=== PATIENT | female | born 1945 | race Caucasian/White ===

== ENCOUNTER → 2018-05-14 13:54 | Outpatient (CLI) | payer OTHER, SELFPAY ==
--- NOTE | 2018-05-14 | DI.MG.S_ITS ---
BILATERAL DIGITAL SCREENING MAMMOGRAM 3D/2D WITH CAD: 05/14/2018 CLINICAL: Routine screening. Comparison is made to exams dated: 04/29/2017 mammogram, 04/25/2015 mammogram, and 04/24/2014 mammogram - [facility]. There are scattered fibroglandular elements in both breasts. Current study was also evaluated with a Computer Aided Detection (CAD) system. No significant masses, calcifications, or other findings are seen in either breast. There has been no significant interval change. IMPRESSION: NEGATIVE There is no mammographic evidence of malignancy. A 1 year screening mammogram is recommended. This exam was interpreted at Station ID: [id number]. NOTE: For mammograms, a report in lay terms will be sent to the patient. Approximately 15% of breast malignancies will not be visualized mammographically. In the management of a palpable breast mass, a negative mammogram must not discourage biopsy of a clinically suspicious lesion. Electronically Signed By: Leona buchanan/jeannie:05/14/2018 15:42:19 letter sent: Normal Exam ACR BI-RADS Category 1: Negative 3341F
== END ==
PROVIDERS: PCP Family Medicine; Visit Provider Family Medicine
DX: Z12.31 Encounter for screening mammogram for malignant neoplasm of breast (principal)
CPT/HCPCS: 77063; 77067

== ENCOUNTER → 2018-06-09 18:52 | Outpatient (REF) | payer OTHER, SELFPAY | LOC: LAB 18:52 | PROVIDERS: PCP Family Medicine; Visit Provider Physician Assistant | DX: L57.0 Actinic keratosis (principal) | CPT/HCPCS: 87070; 87075; 87205 ==

== ENCOUNTER → 2019-03-09 10:45 | Outpatient (CLI) | payer OTHER, SELFPAY ==
[2019-03-09 12:11] LABS: Add Manual Diff / Slide Review NO; Basophils Absolute Auto 0 /uL (0-100); Basophils Percent Auto 0.8 % (0-2); Eosinophils Absolute Auto 0 /uL (0-450); Eosinophils Percent Auto 1.1 % (2-4); Hematocrit 39.6 % (36-46); Hemoglobin 13.2 g/dL (12.0-16.0); Lymphocytes Absolute Auto 1400 /uL (1100-4500); Lymphocytes Percent Auto 35.6 % (25-40); Mean Corpuscular HGB Conc 33.4 % (30-36); Mean Corpuscular Hemoglobin 32.1 PG (26-34); Monocytes Absolute Auto 300 /uL (0-900); Monocytes Percent Auto 6.8 % (3-14); Neutrophils Absolute Auto 2200 /uL (1500-7000); Neutrophils Percent Auto 55.7 % (50-75); Platelet Count 193 X10^3/uL (150-400); Red Blood Cell Count 4.12 X10^6/uL (4.0-5.2); Red Cell Distribution Width 13.7 % (11.6-14.8); White Blood Cell Count 3.9 X10^3/uL (4.5-11.0)
[2019-03-09 12:18] LABS: Alanine Aminotransferase 32 IU/L (9-52); Albumin 4.2 g/dL (3.5-5.0); Albumin Globulin Ratio 1.3 (1.0-2.8); Alkaline Phosphatase 81 U/L (38-126); Aspartate Aminotransferase 41 IU/L (14-36); BUN Creatinine Ratio 23.3 (6-22); Bilirubin Total 0.7 mg/dL (0.2-1.3); Blood Urea Nitrogen 21 mg/dL (7-17); Calcium 9.3 mg/dL (8.4-10.2); Carbon Dioxide 29 mmol/L (22-32); Chloride 102 mmol/L (98-107); Estimated Glomerular Filt Rate > 60.0 mL/min (>60); Globulin 3.2 g/dL (1.7-4.1); Glucose 84 mg/dL (80-110); HEMOLYSIS < 15 (0-50); Potassium 4.6 mmol/L (3.4-5.1); Sodium 139 mmol/L (137-145); Total Protein 7.4 g/dL (6.3-8.2)
[2019-03-09 12:46] LABS: Thyroid Stimulating Hormone 2.46 uIU/mL (0.47-4.68)
== END ==
PROVIDERS: PCP Family Medicine; Visit Provider Hospitalist
DX: E03.9 Hypothyroidism, unspecified (principal); E78.2 Mixed hyperlipidemia; Z13.29 Encounter for screening for other suspected endocrine disorder
CPT/HCPCS: 36415; 80053; 84443; 85025

== ENCOUNTER → 2019-03-17 13:47 | Outpatient (CLI) | payer OTHER, SELFPAY ==
--- NOTE | 2019-03-17 13:48 | DI.ECHO.S_ITS ---
[facility] +---------+ : : [address] [place] : : : : [id number] : : : : Phone: [phone]---------+ Echocardiogram Report + + :Name: WENCESLAO MENDOZA Study Date: 03/17/2019 Height: 68 in : :[facility] Exam Location: [place] Weight: 150 lb : : Gender: Female BSA: 1.8 m2 : :: 1945 Age: 74 yrs BP: 110/55 mmHg: :Reason For Study: AFIB : : Performed By: Domo Licona : :Referring: HOWARD MCGEE : + + Interpretation Summary 1) Normal left ventricular thickness, size, wall motion, and systolic function (EF 60-65%). 2) The right ventricle is mildly dilated with normal function. 3) The right atrium is moderately dilated. Left atrium is normal sized. 4) There is moderate tricuspid regurgitation. 5) The right ventricular systolic pressure is estimated to be at least 33 mmHg based on an estimated right atrial pressure of 3 mm Hg. 6) No prior Echo available for comparison. Procedure: A two-dimensional transthoracic echocardiogram with color flow and Doppler was performed. The study quality was technically good. There is no prior echocardiogram noted for this patient. The patient was in normal sinus rhythm during the exam. Left Ventricle: The left ventricle is normal in size. There is normal left ventricular wall thickness. The ejection fraction is estimated to be 60-65%. There are no focal wall motion abnormalities. Right Ventricle: The right ventricle is mildly dilated. The right ventricular systolic function is normal. Atria: The left atrial size is normal. The right atrium is moderately dilated. The interatrial septum is intact with no evidence for an atrial septal defect. Mitral Valve: The mitral valve is normal in structure and function. There is trace mitral regurgitation. Aortic Valve: The aortic valve is trileaflet. The aortic valve opens well. There is no aortic valve stenosis. There is trace aortic regurgitation. Tricuspid Valve: The tricuspid leaflets do not coapt. There is moderate tricuspid regurgitation. The right ventricular systolic pressure is estimated to be at least 33 mmHg based on an estimated right atrial pressure of 3 mm Hg. Pulmonic Valve: The pulmonic valve is normal in structure and function. There is no pulmonic valvular regurgitation. Great Vessels: The aortic root is normal size. The dimensions of the ascending aorta are normal. The pulmonary artery is normal size. The IVC is of normal diameter and collapses greater than 50% with a sniff. This suggests a low right atrial pressure of 3 mm Hg. Pericardium/ Pleura There is no pericardial effusion. There is no pleural effusion. MMode/2D Measurements & Calculations LVIDd: 4.4 cm LVOT diam: 2.1 cm LVIDs: 3.0 cm Ao root diam: 3.1 cm FS: 32.4 % asc Aorta Diam: 3.2 cm EPSS: 0.43 cm Ao Arch Diam (Prox Trans): 2.5 cm IVSd: 0.74 cm LVPWd: 0.58 cm LV wilkinson. diameter/BSA (cm/m^2): 2.4 LV sys. diameter/BSA (cm/m^2): 1.7 LA dimension: 3.2 cm RA long axis: 4.9 cm LA A2 area: 20.0 cm2 RA area: 22.3 cm2 LA A4 area: 15.4 cm2 RA vol: 85.5 ml LA length (vol): 4.7 cm RA : 47.3 ml/m2 LA vol: 55.1 ml IVC diam: 1.6 cm LA vol index: 30.5 ml/m2 RVD1 (basal): 4.6 cm RVD2 (mid): 3.5 cm Doppler Measurements & Calculations Ao V2 max: 99.6 cm/sec LVOT Max Antolin: 85.1 cm/sec Ao V2 mean: 79.3 cm/sec LV V1 max P.9 mmHg Ao max P.0 mmHg LV V1 VTI: 20.3 cm Ao mean P.6 mmHg JONAS(I,D): 2.6 cm2 Ao V2 VTI: 25.5 cm JONAS(V,D): 2.8 cm2 sev ratio: 0.80 JONAS indexed to BSA (cm^2/m^2): 1.5 MV E max antolin: 62.4 cm/sec TR max antolin: 272.6 cm/sec MV A max antolin: 58.1 cm/sec TR max P.7 mmHg MV E/A: 1.1 PA V2 max: 75.2 cm/sec Med Peak E' Antolin: 7.7 cm/sec PA V2 mean: 56.2 cm/sec E/E' med: 8.1 PA mean P.3 mmHg Lat Peak E' Antolin: 7.6 cm/sec PA pr(Accel): 14.1 mmHg E/E' lat: 8.2 PA Accel Time: 0.13 sec E/e' average: 8.1 MV dec time: 0.24 sec SV(LVOT): 67.2 ml Reading Physician:02:52 PM
== END ==
PROVIDERS: PCP Family Medicine; Visit Provider Hospitalist
DX: I48.91 Unspecified atrial fibrillation (principal)
CPT/HCPCS: 93306

== ENCOUNTER 2019-04-12 07:47 | Day surgery (SDC) | payer OTHER, SELFPAY ==
[2019-04-12] MEDS: PROPARACAINE 0.5% OPHTH SOL 2 DROPS EYE-OP (08:53)
[2019-04-12] MEDS: CATARACT EYE COMPOUND (10 DROPS/SYRINGE) 3 DROPS EYE-OP ×3 (08:54→09:11)
[2019-04-12 08:55] VITALS: BP 120/67; PULSE 61; RESP 16; TEMP 36.7; O2SAT 98; BMI 22.8
--- NOTE | 2019-04-12 09:57 | PM.PREOP ---
Pre-operative Note Interval Note History & Physical reviewed/Exam performed by Physician: No Changes to H&P: No
--- NOTE | 2019-04-12 09:57 | PM.OP.1 ---
Operative Date/Time/Diagnoses Pre-op diagnosis: Nuclear cataract right eye Procedure & Clinicians Procedure: Cataract Surgery Same procedure as scheduled: Yes Surgeon: Austin Galvan Anesthesia Type: MAC +/- and Sedation Operative Notes Procedure in detail: Patient brought to the operating suite. Tetracaine drops placed in the right eye. Patient was prepped and draped in sterile manner. Wire lid speculum was placed in the eye. Betadine drops were placed on the eye. This was irrigated. Lidocaine jelly was placed on the eye. A paracentesis port was created with a side-port blade. 0.1 mL 1% preservative free lidocaine was injected into the anterior chamber. The anterior chamber was deepened with viscoelastic. 2.6 mm keratome was used to create a temporal clear corneal incision. Cystotome and Utrata forceps were used to create continuous tear capsulorrhexis. Balanced salt solution was used to hydro dissect the nucleus. The miloop was used to crack the nucleous. The phacoemulsification handpiece was inserted and the nucleus was removed using the stop and chop technique. The irrigation aspiration handpiece was inserted and the remaining cortex was removed. Anterior chamber was deepened with viscoelastic. An Villagran ZCB00 intraocular lens with a power of 24.5 was injected into the capsular bag. Irrigation aspiration handpiece was inserted and the remaining viscoelastic was removed. Incision was hydrated with balanced salt solution and found to be leak free with pressure with Weck-Chen sponges. 0.1 mL Vigamox injected anterior chamber. 0.3 mL Kenalog 10 mg was injected subconjunctivally. Lid speculum was removed. The patient left the operating room in excellent condition. Complications: none Post-operative Condition: stable Disposition: same day surgery
[2019-04-12] MEDS: CHONDROIDTIN/SOD HYALURONATE 1.05 ML SYRINGE INTRAOCULA (10:22)
[2019-04-12] MEDS: MOXIFLOXACIN INJ 5 MG/ML VIAL EYE-OP (10:22)
[2019-04-12] MEDS: PHENYLEPHRINE/LIDOCAINE VIAL (OR) 0.2 ML EYE-OP (10:22)
[2019-04-12] MEDS: LIDOCAINE JELLY 2% 5 ML 1 APPLIC TOP (10:22)
[2019-04-12] MEDS: TRIAMCINOLONE 50 MG/5 ML VIAL INJ (10:23)
[2019-04-12] MEDS: TETRACAINE 0.5% OPHTH DROPS 4 ML 2 DROPS EYE-OP (10:23)
[2019-04-12] MEDS: BALANCED SALT IRRIG SOLN NO.2 500 ML, EPINEPHrine 1 MG IRR (10:23)
[2019-04-12 10:30] VITALS: BP 96/71; PULSE 68; RESP 16; O2SAT 96
--- NOTE | 2019-04-12 17:06 | SUR.PHASEII ---
Pt discharged by Mariella Tabor RN (documentation only by Gold Ruiz RN as she doesn't work in [employer] and know our documentation).
== END 2019-04-12 10:45 | disposition home or self-care (01) ==
LOC: OR 07:49
PROVIDERS: PCP Family Medicine; Visit Provider Ophthalmology
PROC: (CPT 66984; principal; 2019-04-12 09:45)
DX: H25.11 Age-related nuclear cataract, right eye (principal); E03.9 Hypothyroidism, unspecified
CPT/HCPCS: 66984; J0171; J2250; J3301

== ENCOUNTER 2019-04-26 10:32 | Day surgery (SDC) | payer OTHER, SELFPAY ==
[2019-04-26 10:54] VITALS: BP 106/64; PULSE 62; RESP 16; TEMP 36.9; O2SAT 99
[2019-04-26] MEDS: PROPARACAINE 0.5% OPHTH SOL 2 DROPS EYE-OP (10:55)
[2019-04-26 10:57] VITALS: BMI 23.4
[2019-04-26] MEDS: CATARACT EYE COMPOUND (10 DROPS/SYRINGE) 3 DROPS EYE-OP (11:00)
--- NOTE | 2019-04-26 11:14 | PM.PREOP ---
Pre-operative Note Interval Note History & Physical reviewed/Exam performed by Physician: No Changes to H&P: No
--- NOTE | 2019-04-26 11:14 | PM.OP.1 ---
Operative Date/Time/Diagnoses Pre-op diagnosis: Nuclear Cataract Left eye Post-op diagnosis: same Procedure & Clinicians Surgeon: Austin Galvan Anesthesia Type: MAC +/- and Sedation Operative Notes Procedure in detail: Patient brought to the operating suite. Tetracaine drops placed in the left eye. Patient was prepped and draped in sterile manner. Wire lid speculum was placed in the eye. Betadine drops were placed on the eye. This was irrigated. Lidocaine jelly was placed on the eye. A paracentesis port was created with a side-port blade. 0.1 mL 1% preservative free lidocaine was injected into the anterior chamber. The anterior chamber was deepened with viscoelastic. 2.6 mm keratome was used to create a temporal clear corneal incision. Cystotome and Utrata forceps were used to create continuous tear capsulorrhexis. Balanced salt solution was used to hydro dissect the nucleus. The phacoemulsification handpiece was inserted and the nucleus was removed using the stop and chop technique. The irrigation aspiration handpiece was inserted and the remaining cortex was removed. Anterior chamber was deepened with viscoelastic. An Villagran ZCB00 intraocular lens with a power of 23.5 was injected into the capsular bag. Irrigation aspiration handpiece was inserted and the remaining viscoelastic was removed. Incision was hydrated with balanced salt solution and found to be leak free with pressure with Weck-Chen sponges. 0.1 mL Vigamox injected anterior chamber. 0.3 mL Kenalog 10 mg was injected subconjunctivally. Lid speculum was removed. The patient left the operating room in excellent condition. Complications: none Post-operative Condition: stable Disposition: same day surgery
--- NOTE | 2019-04-26 11:32 | SUR.OPER ---
Supine on eye stretcher, head on extension cradle secured with tape. Arms tucked at sides with blanket. Pillow under knees.
[2019-04-26] MEDS: CHONDROIDTIN/SOD HYALURONATE 1.05 ML SYRINGE INTRAOCULA (11:36)
[2019-04-26] MEDS: LIDOCAINE JELLY 2% 5 ML 1 APPLIC TOP (11:36)
[2019-04-26] MEDS: MOXIFLOXACIN INJ 5 MG/ML VIAL EYE-OP (11:36)
[2019-04-26] MEDS: TETRACAINE 0.5% OPHTH DROPS 4 ML 2 DROPS EYE-OP (11:37)
[2019-04-26] MEDS: TRIAMCINOLONE 50 MG/5 ML VIAL INJ (11:37)
[2019-04-26] MEDS: PHENYLEPHRINE/LIDOCAINE VIAL (OR) 0.2 ML EYE-OP (11:37)
[2019-04-26] MEDS: BALANCED SALT IRRIG SOLN NO.2 500 ML, EPINEPHrine 1 MG IRR (11:38)
[2019-04-26 11:48] VITALS: BP 102/66; PULSE 62; RESP 15; TEMP 36.6; O2SAT 99
== END 2019-04-26 12:00 ==
LOC: OR 10:34
PROVIDERS: PCP Family Medicine; Visit Provider Ophthalmology
PROC: (CPT 66984; principal; 2019-04-26 12:15)
DX: H25.12 Age-related nuclear cataract, left eye (principal); E03.9 Hypothyroidism, unspecified; I48.91 Unspecified atrial fibrillation
CPT/HCPCS: 66984; J0171; J2250; J3301

== ENCOUNTER → 2019-05-16 13:21 | Outpatient (CLI) | payer OTHER, SELFPAY ==
--- NOTE | 2019-05-16 | DI.MG.S_ITS ---
BILATERAL DIGITAL SCREENING MAMMOGRAM 3D/2D WITH CAD: 05/16/2019 CLINICAL: Routine screening. Comparison is made to exams dated: 05/14/2018 mammogram, 04/29/2017 mammogram, 04/25/2015 mammogram, and 04/24/2014 mammogram - [facility]. There are scattered fibroglandular elements in both breasts. Current study was also evaluated with a Computer Aided Detection (CAD) system. There is a mole marker on both breasts. No significant masses, calcifications, or other findings are seen in either breast. There has been no significant interval change. IMPRESSION: NEGATIVE There is no mammographic evidence of malignancy. A 1 year screening mammogram is recommended. This exam was interpreted at Station ID: [id number]. NOTE: For mammograms, a report in lay terms will be sent to the patient. Approximately 15% of breast malignancies will not be visualized mammographically. In the management of a palpable breast mass, a negative mammogram must not discourage biopsy of a clinically suspicious lesion. Electronically Signed By: Nitin chin/jeannie:05/16/2019 19:10:26 letter sent: Normal Exam ACR BI-RADS Category 1: Negative 3341F
== END ==
PROVIDERS: PCP Family Medicine; Visit Provider Family Medicine
DX: Z12.31 Encounter for screening mammogram for malignant neoplasm of breast (principal)
CPT/HCPCS: 77063; 77067

== ENCOUNTER → 2019-05-17 11:32 | Outpatient (CLI) | payer OTHER, SELFPAY ==
[2019-05-17 13:50] LABS: Cholesterol 226 mg/dL (140-199); HDL Cholesterol 81 mg/dL (40-60); LDL Cholesterol Calculated 133 mg/dL (<100); Magnesium 1.9 mg/dL (1.6-2.3); Triglycerides 61 mg/dL (35-150)
== END ==
PROVIDERS: PCP Family Medicine; Visit Provider Internal Medicine Cardiovascular Disease
DX: I48.0 Paroxysmal atrial fibrillation (principal); E78.5 Hyperlipidemia, unspecified; R00.2 Palpitations
CPT/HCPCS: 36415; 80061; 83735

== ENCOUNTER → 2019-06-17 14:30 | Outpatient (CLI) | payer OTHER, SELFPAY ==
--- NOTE | 2019-06-20 09:33 | PM.TREADMILL ---
Cardiac Stress Test Report Referral & Results Date Patient Seen: 06/20/19 Requesting provider: Vinod Dhillon Indication: Paroxysmal atrial fibrillation Rest ECG: Sinus rhythm with frequent PACs Procedure Note: Today following both written and verbal informed consent the patient was exercised according to a standard Idris protocol patient went for a total of 3 minutes 9 seconds achieving a maximum heart rate of 180 for maximum systolic blood pressure of 150. This is approximately 4.6 METS. Exercise was terminated at this point because of inability the patient to continue. Patient went into atrial fibrillation with rapid ventricular response near the end of the 1st stage of the Idris protocol. With this she felt quite uncomfortable. She was barely able to continue into the 2nd stage. There are no ST-T segment changes identified Normal blood pressure response to exercise. Patient's heart rate did decrease significantly to less than 100 in the recovery portion of the test. She remained in atrial fibrillation however Functional aerobic impairment rates about 10% on the sedentary scale Patient was also given Cardiolite through a previously started Hep-Lock IV by the diagnostic imaging staff approximately 1 minute prior to the cessation of exercise. Impression: Atrial fibrillation as above. Patient did take her metoprolol morning of procedure and despite that had a rapid ventricular response to her atrial fibrillation Please see perfusion imaging report as well regarding possible ischemia Please note: Actual ECG tracings can be found in the PACS system.
--- NOTE | 2019-06-20 18:37 | DI.NM.S_ITS ---
DATE OF SERVICE: 06/17/2019 PROCEDURE: Exercise perfusion study. INDICATIONS: Paroxysmal atrial fibrillation. RADIOPHARMACEUTICAL: 25.3 mCi technetium-99m Myoview IV was injected at stress and 26.0 mCi technetium-99m Myoview IV was injected at rest. CARDIAC STRESS: Patient underwent exercise perfusion study under the supervision of an attending staff. She walked on Idris protocol for 3 minutes 09 seconds, achieved 128% of target heart rate, and normal blood pressure response. Patient was unable to continue on treadmill, hence, it was discontinued. Baseline rhythm was low atrial rhythm with a heart rate of 61 with low-voltage complexes, some nonspecific ST-T changes. Poor R-wave progression. RSR-complexes in V1 to V2. During exercise, patient went into a tribulation with fast ventricular rate up to 184. There were no convincing ischemic changes. RAW DATA: There is increased of diaphragmatic activity. Breast shadow was seen as well. GATED STUDY: Resting LV ejection fraction 71% and stress LV ejection fraction 75%. No obvious wall motion abnormalities. Resting end-diastolic volume is 79 mL. TID ratio is 0.73, which is within normal limits. Lung/heart ratio is 0.33, which is within normal limits. MYOCARDIAL PERFUSION SCAN: Resting supine images revealed small-sized mildly decreased perfusion of distal anterior wall. However stress supine and stress prone images revealed normal myocardial perfusion. CONCLUSION: I will call this study a normal myocardial perfusion study without any convincing ischemia infarction pattern. Patient developed atrial fibrillation during exercise. Left ventricular (LV) function is preserved. As far as perfusion scan is concerned, this is a low-risk myocardial perfusion scan. Cindy Duran - JAMEL/maya/ doc#: [id number]/job#: [id number] dd: 06/20/2019 17:49:00 dt: 06/20/2019 18:21:00 DICTATING MD/COPIES TO: Vinod Dhillon MD COPIES MNE: FILEMON
== END ==
PROVIDERS: PCP Family Medicine; Visit Provider Internal Medicine Cardiovascular Disease
DX: I48.0 Paroxysmal atrial fibrillation (principal)
CPT/HCPCS: 78452; 93016; 93017; 93018; A9502

== ENCOUNTER 2019-12-20 18:04 | Emergency (ER) | payer OTHER, SELFPAY ==
[2019-12-20 18:06] VITALS: BP 137/79; PULSE 94; RESP 13; TEMP 36.9; O2SAT 98
--- NOTE | 2019-12-20 18:42 | DI.RAD.S_ITS ---
PROCEDURE: XR CHEST 1V INDICATIONS: Chest pain TECHNIQUE: One view of the chest was acquired. COMPARISON: [facility], , CHEST 2 VIEW, 06/24/2010, 12:36. FINDINGS: Surgical changes and devices: None. Lungs and pleura: Lungs are clear. No pleural effusions or pneumothorax. Mediastinum: Mediastinal contours appear normal. Heart size is normal. Bones and chest wall: No suspicious bony lesions. Overlying soft tissues appear unremarkable. IMPRESSION: Stable radiographic evaluation of the chest without acute cardiopulmonary abnormalities or focal airspace disease. Dictated by: Paolo Mack M.D. on 12/20/2019 at 20:00 Approved by: Paolo Mack M.D. on 12/20/2019 at 20:00
[2019-12-20 18:58] LABS: Add Manual Diff / Slide Review NO; Basophils Absolute Auto 100 /uL (0-100); Basophils Percent Auto 0.9 % (0-2); Eosinophils Absolute Auto 100 /uL (0-450); Eosinophils Percent Auto 1.9 % (2-4); Hemoglobin 13.3 g/dL (12.0-16.0); Lymphocytes Absolute Auto 1800 /uL (1100-4500); Lymphocytes Percent Auto 31.3 % (25-40); Mean Corpuscular HGB Conc 34.1 % (30-36); Mean Corpuscular Hemoglobin 32.8 PG (26-34); Mean Corpuscular Volume 96.3 fL (80-100); Monocytes Absolute Auto 500 /uL (0-900); Monocytes Percent Auto 8.3 % (3-14); Neutrophils Absolute Auto 3400 /uL (1500-7000); Neutrophils Percent Auto 57.6 % (50-75); Platelet Count 193 X10^3/uL (150-400); Red Blood Cell Count 4.05 X10^6/uL (4.0-5.2); Red Cell Distribution Width 13.9 % (11.6-14.8); White Blood Cell Count 5.8 X10^3/uL (4.5-11.0)
[2019-12-20 19:06] LABS: INR 1.2 (0.9-1.3); Prothrombin Time 13.6 SECONDS (10.1-12.7)
[2019-12-20 19:08] LABS: PTT Partial Thromboplastin Tim 48 SECONDS (26.4-36.2)
[2019-12-20 19:10] LABS: Alanine Aminotransferase 60 IU/L (<35); Albumin 4.4 g/dL (3.5-5.0); Albumin Globulin Ratio 1.4 (1.0-2.8); Alkaline Phosphatase 97 U/L (38-126); Aspartate Aminotransferase 60 IU/L (14-36); BUN Creatinine Ratio 19.6 (6-22); Bilirubin Total 0.5 mg/dL (0.2-1.3); Blood Urea Nitrogen 22 mg/dL (7-17); Calcium 9.4 mg/dL (8.4-10.2); Carbon Dioxide 28 mmol/L (22-32); Chloride 105 mmol/L (98-107); Estimated Glomerular Filt Rate 47.3 mL/min (>60); Globulin 3.2 g/dL (1.7-4.1); Glucose 104 mg/dL (80-110); HEMOLYSIS 20 (0-50); Lipase 217 U/L (23-300); Potassium 4.2 mmol/L (3.4-5.1); Sodium 139 mmol/L (137-145); Total Protein 7.6 g/dL (6.3-8.2)
--- NOTE | 2019-12-20 19:12 | ED_ITS ---
HPI - Arrhythmia/Palpitations General Chief Complaint: Arrhythmia/Palpitations Stated Complaint: HIGH PULSE AFIB Time Seen by Provider: 12/20/19 18:41 Source: patient Mode of arrival: Ambulatory Limitations: no limitations History of Present Illness HPI narrative: Patient is a 74-year-old female. History of atrial fibrillation. Is on Pradaxa. Also on metoprolol 25 mg 2 times a day. Is also on flecainide 100 mg 2 times a day. Here for evaluation of dyspnea on exertion and rapid heart rate. This is been going on for the past couple days. Patient stated that she felt like the symptoms were worse today. She was out doing yd work and noticed that she had to stop to catch her breath and at that time was also feels like her heart was beating very fast. She denies any chest pain. She states that happened several times today when she was exerting herself and then again at home when she was walking up a flight of stairs. Each time she states she felt like her heart rate was going fast. She did have a blood pressure cuff at home. Took her blood pressure multiple times. The systolic ranged between 120s to 140s. It also gives her her heart rate in it was ranging between 80s and 140s. At the time of evaluation she states she was not having symptoms. Related Data Home Medications Medication Instructions Recorded Confirmed atorvastatin 20 mg tablet 20 mg PO DAILY 06/22/19 06/22/19 dabigatran etexilate 150 mg capsule 150 mg PO BID cap 06/22/19 06/22/19 Previous Rx's Medication Instructions Recorded levothyroxine 75 mcg tablet 75 mcg PO ONCE #90 tab 06/22/19 metoprolol succinate 25 mg 25 mg PO BID #180 tab 06/22/19 tablet,extended release 24 hr Allergies Allergy/AdvReac Type Severity Reaction Status Date / Time monosodium glutamate Allergy Severe Anaphylaxis Verified 06/22/19 14:27 sulfite Allergy Severe Redness Verified 06/22/19 14:27 and swelling Sulfa (Sulfonamide Allergy Mild Verified 06/22/19 14:27 Antibiotics) [SULFA (SULFONAMIDE ANTIBIOTICS)] bacitracin AdvReac Severe Swelling Verified 06/22/19 14:31 [From Neosporin ([id number])] neomycin AdvReac Severe Swelling Verified 06/22/19 14:31 [From Neosporin ([id number])] polymyxin B AdvReac Severe Swelling Verified 06/22/19 14:31 [From Neosporin ([id number])] Review of Systems Constitutional Constitutional: Denies fever(s) and Denies headache(s) ENT Ears, Nose, Mouth, and Throat: Denies headache(s) Cardiovascular Cardiovascular: Denies chest pain, Reports rapid heart rate, Reports palpitations and Reports dyspnea on exertion Respiratory Respiratory: Denies cough and Reports dyspnea on exertion Gastrointestinal Gastrointestinal: Denies abdominal pain, Denies nausea and Denies vomiting Musculoskeletal Musculoskeletal: Denies myalgias and Denies arthralgias Integumentary/Breasts Skin/Breast: Denies lesions and Denies rash Neurologic Neurologic: Denies behavioral changes, Denies confusion and Denies headache(s) Psychiatric Psychiatric: Denies behavioral changes and Denies confusion Endocrine Endocrine: Reports palpitations Hematologic/Lymphatic Hematologic/Lymphatic: Denies easy bleeding and Denies easy bruising Allergic/Immunologic Allergic/Immunologic: Denies urticaria Patient History Medical History (Updated 12/21/19 @ 01:58 by Teodoro Gonzalez DO) Cataract (Chronic) Chicken pox (Resolved ~1948) Hayfever (Chronic) Hypothyroidism (Chronic) Measles (Resolved 1946) Osteoarthritis (Suspected) Osteopenia (Chronic) Paroxysmal atrial fibrillation (Inactive) Tinnitus (Resolved 2007) Surgical History Status post tubal ligation (Resolved 03/19/71) Social History household members: spouse Smoking Status: Never smoker Smoking Status: Never smoker Exam Initial Vital Signs Initial Vital Signs: Vital Signs Temperature 98.4 F 12/20/19 18:06 Pulse Rate 94 H 12/20/19 18:06 Respiratory Rate 13 12/20/19 18:06 Blood Pressure 137/79 12/20/19 18:06 Pulse Oximetry 98 12/20/19 18:06 Const General: cooperative, comfortable, well developed and well groomed Limitations: mental status not altered [facility] [place] Head: normal to inspection and normocephalic Resp Effort & Inspection: normal respiratory effort Auscultation: clear to auscultation bilaterally Cardio Rate: regular rate Rhythm: regular rhythm Pulses: radial pulses present GI Inspection: non-distended Palpation: soft Skin Lesions: no lesions Rashes: no rashes Neuro General: alert, awake and oriented x3 Cognition: normal cognition Speech: speech normal Gait: normal gait Extrem General: normal to inspection and capillary refill normal Psych Appearance: grossly normal and well kempt Scores GCS [place] coma scale eye opening: Spontaneous [place] coma scale verbal response: Orientated Lopez coma scale motor response: Obey commands [place] coma scale total score: 15 Course Orders Ordered: ED Orders 12/20/19 18:42 XR chest 1V Stat EKG-12 Lead Stat 12/20/19 18:47 Complete Blood Count AUTO DIFF Stat Comprehensive Metabolic Panel Stat Lipase Stat NT-proBNP (BNP-Adult 18+) Stat Partial Thromboplastin Time Stat Prothrombin Time INR Stat Troponin I Stat 12/20/19 19:00 EKG-12 Lead Stat 12/20/19 21:15 Troponin I Stat Discontinued Medications Aspirin (Aspirin Chew) 324 mg PO NOW ONE Stop: 12/20/19 18:42 Last Admin: 12/20/19 19:18 Dose: Not Given Documented by: RADHA Sodium Chloride (Normal Saline 0.9%) 1,000 mls @ 125 mls/hr IV CONT STEVE Last Admin: 12/20/19 19:18 Dose: Not Given Documented by: RADHA Vital Signs Vital signs: Vital Signs - 8 hr 12/20/19 18:06 12/20/19 19:49 12/20/19 21:51 Temperature 98.4 F Pulse Rate 94 H 90 87 Respiratory Rate 13 16 16 Blood Pressure 137/79 136/80 Pulse Oximetry 98 97 97 MDM - Arrhythmia/Palpitations Medical Records Attestation: I reviewed the patient's medical records. Lab Data Attestation: I reviewed the patient's lab results. Result diagrams: 12/20/19 18:47 12/20/19 18:47 Labs: Lab Results 12/20/19 12/20/19 12/20/19 Range/Units 18:47 18:47 18:47 WBC 5.8 (4.5-11.0) X10^3/uL RBC 4.05 (4.0-5.2) X10^6/uL Hgb 13.3 (12.0-16.0) g/dL Hct 39.0 (36-46) % MCV 96.3 (80-100) fL MCH 32.8 (26-34) PG MCHC 34.1 (30-36) % RDW 13.9 (11.6-14.8) % Plt Count 193 (150-400) X10^3/uL Neut % (Auto) 57.6 (50-75) % Lymph % (Auto) 31.3 (25-40) % [place] % (Auto) 8.3 (3-14) % Eos % (Auto) 1.9 L (2-4) % Baso % (Auto) 0.9 (0-2) % Neut # (Auto) 3400 (0641-4453) /uL Lymph # (Auto) 1800 (9903-7888) /uL [place] # (Auto) 500 (0-900) /uL Eos # (Auto) 100 (0-450) /uL Baso # (Auto) 100 (0-100) /uL PT 13.6 H (10.1-12.7) SECONDS INR 1.2 (0.9-1.3) APTT 48 H (26.4-36.2) SECONDS Sodium 139 (137-145) mmol/L Potassium 4.2 (3.4-5.1) mmol/L Chloride 105 (98-107) mmol/L Carbon Dioxide 28 (22-32) mmol/L BUN 22 H (7-17) mg/dL Creatinine 1.12 H (0.52-1.04) mg/dL Estimated GFR 47.3 L (>60) mL/min BUN/Creatinine Ratio 19.6 (6-22) Glucose 104 (80-110) mg/dL Calcium 9.4 (8.4-10.2) mg/dL Total Bilirubin 0.5 (0.2-1.3) mg/dL AST 60 H (14-36) IU/L ALT 60 H (<35) IU/L Alkaline Phosphatase 97 (38-126) U/L Troponin I < 0.012 (0.01-0.034) ng/mL NT-Pro-B Natriuret Pep 1440 H (<450) pg/mL Total Protein 7.6 (6.3-8.2) g/dL Albumin 4.4 (3.5-5.0) g/dL Globulin 3.2 (1.7-4.1) g/dL Albumin/Globulin Ratio 1.4 (1.0-2.8) Lipase 217 (23-300) U/L // Range/Units 21:15 WBC (4.5-11.0) X10^3/uL RBC (4.0-5.2) X10^6/uL Hgb (12.0-16.0) g/dL Hct (36-46) % MCV (80-100) fL MCH (26-34) PG MCHC (30-36) % RDW (11.6-14.8) % Plt Count (150-400) X10^3/uL Neut % (Auto) (50-75) % Lymph % (Auto) (25-40) % [place] % (Auto) (3-14) % Eos % (Auto) (2-4) % Baso % (Auto) (0-2) % Neut # (Auto) (2538-9201) /uL Lymph # (Auto) (8470-8634) /uL [place] # (Auto) (0-900) /uL Eos # (Auto) (0-450) /uL Baso # (Auto) (0-100) /uL PT (10.1-12.7) SECONDS INR (0.9-1.3) APTT (26.4-36.2) SECONDS Sodium (137-145) mmol/L Potassium (3.4-5.1) mmol/L Chloride (98-107) mmol/L Carbon Dioxide (22-32) mmol/L BUN (7-17) mg/dL Creatinine (0.52-1.04) mg/dL Estimated GFR (>60) mL/min BUN/Creatinine Ratio (6-22) Glucose (80-110) mg/dL Calcium (8.4-10.2) mg/dL Total Bilirubin (0.2-1.3) mg/dL AST (14-36) IU/L ALT (<35) IU/L Alkaline Phosphatase (38-126) U/L Troponin I < 0.012 (0.01-0.034) ng/mL NT-Pro-B Natriuret Pep (<450) pg/mL Total Protein (6.3-8.2) g/dL Albumin (3.5-5.0) g/dL Globulin (1.7-4.1) g/dL Albumin/Globulin Ratio (1.0-2.8) Lipase (23-300) U/L Imaging Data Chest x-ray: Radiologist's Impresson: [address] [address] XRay Report Signed Patient: Cindy Duran [facility]#: [id number] : 3Acct:[id number] Age/Sex: 74 / FDate of Service: 12/20/19 Loc: ED Accession Number: [id number] Procedure: XR chest 1V Ordering Provider: Teodoro Gonzalez D.O. PROCEDURE: XR CHEST 1V INDICATIONS: Chest pain TECHNIQUE: One view of the chest was acquired. COMPARISON: [facility], , CHEST 2 VIEW, 06/24/2010, 12:36. FINDINGS: Surgical changes and devices: None. Lungs and pleura: Lungs are clear. No pleural effusions or pneumothorax. Mediastinum: Mediastinal contours appear normal. Heart size is normal. Bones and chest wall: No suspicious bony lesions. Overlying soft tissues appear unremarkable. IMPRESSION: Stable radiographic evaluation of the chest without acute cardiopulmonary abnormalities or focal airspace disease. Dictated by: Paolo Mack M.D. on 12/20/2019 at 20:00 Approved by: Paolo Mack M.D. on 12/20/2019 at 20:00 ECG Data Attestation: I personally reviewed and interpreted this ECG as follows: Prior ECG tracings: not available for review Interpretation: Initial EKG Atrial flutter Ventricular rate of 94 QRS 133 milliseconds QTC [address] T wave changes Repeat EKG Atrial flutter Ventricular rate 82 Unchanged from initial EKG MDM Narrative Medical decision making narrative: Patient was not hypotensive nor tachycardic during her time here in the ER. Her chest x-ray is unremarkable. Labs are unremarkable. I did discuss the case with Dr. Dhillon who is on-call for cardiology who did review the patient's EKGs. He stated that the patient was in atrial flutter. Despite her rate control he did recommend that the patient be offered a cardioversion. The patient has been on Pradaxa on a daily basis for the past several months. The concern to be is that if she was not converted back to sinus rhythm that she is going to continue to have episodes of tachycardia. I did discuss this with the patient and her family who is at [facility]. We did discuss cardioversion. We did discuss the risks and benefits of this procedure. We also discussed the risks and benefits of not doing this procedure. Informed her that even if we did the procedure there is a potential that she could revert back to atrial flutter/fibrillation. We also discussed that if we did not do the procedure that there is a chance that she will continue to have episodes of tachycardia because she was in atrial flutter. Patient expressed understanding of this. Family expressed understanding of this. Patient stated that she did not want a cardioversion. I am unsure the exact reason is why however she did state multiple times that her sister went through multiple cardioversions and it ?did not help her ?we will have her increase her flecainide to 150 mg 2 times a day. She was given strict return precautions. She expressed understanding of these precautions. She is going to contact her exceptional student education teacher tomorrow for follow-up. Patient clinically not in heart failure Discharge Plan Departure Patient Disposition: Home Clinical Impression: Atrial flutter Qualifiers: Atrial flutter type: unspecified Qualified Code(s): I48.92 - Unspecified atrial flutter Discharge Date/Time: 12/20/19 21:53 Instructions: DI for Atrial Flutter Activity Restrictions/Additional Instructions: After our discussion you did opt to hold on a cardioversion. I do recommend that you increase your flecainide to 150 mg twice a day. I also recommend that tomorrow you contact your exceptional student education teacher for follow-up. Return to the emergency department for any new or worsening symptoms. Continue the rest your medications as directed Prescriptions: No Action atorvastatin 20 mg tablet 20 mg PO DAILY RF: 0 Pradaxa 150 mg capsule 150 mg PO BID RF: 0 metoprolol succinate 25 mg tablet extended release 24 hr 25 mg PO BID Qty: 180 RF: 0 levothyroxine 75 mcg tablet 75 mcg PO ONCE Qty: 90 RF: 3 Referrals: Jose Alberto Gibson MD [Primary Care Provider] -
--- NOTE | 2019-12-20 19:19 | PC.NURSE ---
Pt refusing 324mg ASA. states she takes pradaxa. advised ASA is being given for her acute chest pain and to prevent blood clots and was prescribed by Dr Gonzalez who assessed her, pt continues to decline until speaking to MD. MD aware. Pt denies pain at this time. the only thing bothering me is this thing in my arm attached to cardiac monitoring. NAD
[2019-12-20 19:22] LABS: NT-proBNP (BNP-Adult 18+) 1440 pg/mL (<450); Troponin I < 0.012 ng/mL (0.01-0.034)
[2019-12-20 19:49] VITALS: PULSE 90; RESP 16; O2SAT 97
--- NOTE | 2019-12-20 21:22 | PC.NURSE ---
Pt refusing cardioversion for AFlutter. repeat troponin drawn and sent. ok'd taking night medications.
[2019-12-20 21:45] LABS: Troponin I < 0.012 ng/mL (0.01-0.034)
[2019-12-20 21:51] VITALS: BP 136/80; PULSE 87; RESP 16; O2SAT 97
== END 2019-12-20 21:53 | disposition home or self-care (01) ==
PROVIDERS: Emergency Provider Emergency Medicine; PCP Family Medicine
DX: I48.92 Unspecified atrial flutter (principal); Z79.01 Long term (current) use of anticoagulants
CPT/HCPCS: 36415; 71045; 80053; 83690; 83880; 84484; 85025; 85610; 85730; 93005; 99284

== ENCOUNTER → 2020-05-26 14:18 | Outpatient (CLI) | payer OTHER, SELFPAY ==
--- NOTE | 2020-05-26 | DI.MG.S_ITS ---
BILATERAL DIGITAL SCREENING MAMMOGRAM 3D/2D WITH CAD: 05/26/2020 CLINICAL: Routine screening. Comparison is made to exams dated: 05/16/2019 mammogram, 05/14/2018 mammogram, and 04/29/2017 mammogram - [facility]. There are scattered fibroglandular elements in both breasts. Current study was also evaluated with a Computer Aided Detection (CAD) system. No significant masses, calcifications, or other findings are seen in either breast. There has been no significant interval change. IMPRESSION: NEGATIVE There is no mammographic evidence of malignancy. A 1 year screening mammogram is recommended. This exam was interpreted at Station ID: [id number]. NOTE: For mammograms, a report in lay terms will be sent to the patient. Approximately 15% of breast malignancies will not be visualized mammographically. In the management of a palpable breast mass, a negative mammogram must not discourage biopsy of a clinically suspicious lesion. Electronically Signed By: Giselle hennessy/jeannie:05/28/2020 10:40:09 letter sent: Normal Exam ACR BI-RADS Category 1: Negative [id number]
== END ==
PROVIDERS: PCP Family Medicine; Referring Provider Family Medicine; Visit Provider Family Medicine
DX: Z12.31 Encounter for screening mammogram for malignant neoplasm of breast (principal)
CPT/HCPCS: 77063; 77067

== ENCOUNTER → 2021-01-08 09:44 | Outpatient (CLI) | payer OTHER, SELFPAY ==
[2021-01-08 10:32] LABS: Add Manual Diff / Slide Review NO; Basophils Absolute Auto 0 /uL (0-100); Basophils Percent Auto 1.1 % (0-2); Eosinophils Absolute Auto 100 /uL (0-450); Eosinophils Percent Auto 2.3 % (2-4); Hematocrit 37.8 % (36-46); Hemoglobin 12.6 g/dL (12.0-16.0); Lymphocytes Absolute Auto 1300 /uL (1100-4500); Lymphocytes Percent Auto 38.7 % (25-40); Mean Corpuscular HGB Conc 33.3 % (30-36); Mean Corpuscular Hemoglobin 31.8 PG (26-34); Mean Corpuscular Volume 95.6 fL (80-100); Monocytes Absolute Auto 300 /uL (0-900); Neutrophils Absolute Auto 1700 /uL (1500-7000); Neutrophils Percent Auto 49.9 % (50-75); Platelet Count 183 X10^3/uL (150-400); Red Blood Cell Count 3.95 X10^6/uL (4.0-5.2); Red Cell Distribution Width 14.6 % (11.6-14.8); White Blood Cell Count 3.4 X10^3/uL (4.5-11.0)
[2021-01-08 11:04] LABS: Alanine Aminotransferase 39 IU/L (<35); Albumin 3.8 g/dL (3.5-5.0); Albumin Globulin Ratio 1.4 (1.0-2.8); Alkaline Phosphatase 89 U/L (38-126); Aspartate Aminotransferase 49 IU/L (14-36); Bilirubin Total 0.6 mg/dL (0.2-1.3); Blood Urea Nitrogen 15 mg/dL (7-17); Calcium 9.1 mg/dL (8.4-10.2); Carbon Dioxide 30 mmol/L (22-32); Chloride 105 mmol/L (98-107); Cholesterol 148 mg/dL (140-199); Estimated Glomerular Filt Rate > 60.0 mL/min (>60); Globulin 2.8 g/dL (1.7-4.1); Glucose 90 mg/dL (80-110); HDL Cholesterol 77 mg/dL (40-60); HEMOLYSIS < 15 (0-50); LDL Cholesterol Calculated 63 mg/dL (<100); Potassium 4.3 mmol/L (3.4-5.1); Sodium 138 mmol/L (137-145); Total Protein 6.6 g/dL (6.3-8.2); Triglycerides 40 mg/dL (35-150)
[2021-01-08 11:29] LABS: TSH w/ Reflex to FT4 2.62 uIU/mL (0.47-4.68)
== END ==
PROVIDERS: PCP Family Medicine; Referring Provider Internal Medicine Cardiovascular Disease; Visit Provider Internal Medicine Cardiovascular Disease
DX: I48.0 Paroxysmal atrial fibrillation (principal); E03.9 Hypothyroidism, unspecified; E78.5 Hyperlipidemia, unspecified
CPT/HCPCS: 36415; 80053; 80061; 84443; 85025

== ENCOUNTER → 2021-07-09 08:37 | Outpatient (CLI) | payer OTHER, SELFPAY ==
[2021-07-09 10:08] LABS: Add Manual Diff / Slide Review NO; Basophils Absolute Auto 100 /uL (0-100); Basophils Percent Auto 1.8 % (0-2); Eosinophils Absolute Auto 200 /uL (0-450); Eosinophils Percent Auto 4.9 % (2-4); Hematocrit 37.5 % (36-46); Hemoglobin 12.5 g/dL (12.0-16.0); Lymphocytes Absolute Auto 1200 /uL (1100-4500); Lymphocytes Percent Auto 37.5 % (25-40); Mean Corpuscular HGB Conc 33.3 % (30-36); Mean Corpuscular Hemoglobin 31.8 PG (26-34); Mean Corpuscular Volume 95.4 fL (80-100); Monocytes Absolute Auto 300 /uL (0-900); Neutrophils Absolute Auto 1600 /uL (1500-7000); Neutrophils Percent Auto 47.8 % (50-75); Platelet Count 163 X10^3/uL (150-400); Red Blood Cell Count 3.93 X10^6/uL (4.0-5.2); Red Cell Distribution Width 13.9 % (11.6-14.8); White Blood Cell Count 3.3 X10^3/uL (4.5-11.0)
[2021-07-09 10:34] LABS: Alanine Aminotransferase 31 IU/L (<35); Albumin 3.9 g/dL (3.5-5.0); Albumin Globulin Ratio 1.4 (1.0-2.8); Alkaline Phosphatase 74 U/L (38-126); Aspartate Aminotransferase 47 IU/L (14-36); BUN Creatinine Ratio 18.3 (6-22); Bilirubin Total 0.6 mg/dL (0.2-1.3); Blood Urea Nitrogen 15 mg/dL (7-17); Calcium 9.1 mg/dL (8.4-10.2); Carbon Dioxide 30 mmol/L (22-32); Chloride 107 mmol/L (98-107); Cholesterol 136 mg/dL (140-199); Estimated Glomerular Filt Rate > 60.0 mL/min (>60); Globulin 2.7 g/dL (1.7-4.1); Glucose 89 mg/dL (80-110); HDL Cholesterol 82 mg/dL (40-60); HEMOLYSIS 15 (0-50); LDL Cholesterol Calculated 47 mg/dL (<100); Potassium 4.5 mmol/L (3.4-5.1); Sodium 140 mmol/L (137-145); Total Protein 6.6 g/dL (6.3-8.2); Triglycerides 37 mg/dL (35-150)
[2021-07-09 10:59] LABS: Thyroid Stimulating Hormone 3.21 uIU/mL (0.47-4.68)
== END ==
PROVIDERS: PCP Family Medicine; Referring Provider Internal Medicine Cardiovascular Disease; Visit Provider Internal Medicine Cardiovascular Disease
DX: I48.0 Paroxysmal atrial fibrillation (principal); E78.5 Hyperlipidemia, unspecified; E03.9 Hypothyroidism, unspecified; E78.2 Mixed hyperlipidemia
CPT/HCPCS: 36415; 80053; 80061; 84439; 84443; 84481; 85025

== ENCOUNTER → 2021-09-30 09:17 | Outpatient (CLI) | payer OTHER, SELFPAY ==
[2021-09-30 12:38] LABS: Digoxin 0.7 ng/mL (0.8-2.0)
== END ==
PROVIDERS: PCP Family Medicine; Referring Provider Physician Assistant Medical; Visit Provider Physician Assistant Medical
DX: I48.0 Paroxysmal atrial fibrillation (principal)
CPT/HCPCS: 36415; 80162

== ENCOUNTER → 2022-04-23 09:07 | Outpatient (CLI) | payer OTHER, SELFPAY ==
[2022-04-23 12:10] LABS: Cholesterol 126 mg/dL (140-199); HDL Cholesterol 65 mg/dL (40-60); LDL Cholesterol Calculated 54 mg/dL (<100); Triglycerides 34 mg/dL (35-150)
== END ==
PROVIDERS: PCP Family Medicine; Referring Provider Physician Assistant Medical; Visit Provider Physician Assistant Medical
DX: E78.00 Pure hypercholesterolemia, unspecified (principal)
CPT/HCPCS: 36415; 80061

== ENCOUNTER → 2022-09-30 11:54 | Outpatient (CLI) | payer OTHER, SELFPAY ==
--- NOTE | 2022-09-30 11:55 | DI.RAD.S_ITS ---
PROCEDURE: XR HIP W PEL IF DONE LT 2V INDICATIONS: chronic pain TECHNIQUE: 2 views of the hip were acquired. COMPARISON: [facility], , HIP 2V LEFT, 05/16/2010, 14:18. FINDINGS: Bones: No fractures or dislocations. No suspicious bony lesions. The visualized pelvic ring appears intact. Moderate bilateral space narrowing. Femoral head has an appropriate contour Soft tissues: No suspicious soft tissue calcifications or masses. IMPRESSION: Moderate bilateral joint space narrowing with subchondral sclerosis Approved by: Hernandez Anguiano M.D. on 09/30/2022 at 15:39
== END ==
PROVIDERS: PCP Family Medicine; Referring Provider Family Medicine; Visit Provider Family Medicine
DX: M25.552 Pain in left hip (principal); G89.29 Other chronic pain
CPT/HCPCS: 73502

== ENCOUNTER → 2022-10-29 09:13 | Outpatient (CLI) | payer OTHER, SELFPAY ==
[2022-10-29 10:08] LABS: Add Manual Diff / Slide Review NO; Basophils Absolute Auto 100 /uL (0-100); Basophils Percent Auto 1.7 % (0-2); Eosinophils Absolute Auto 100 /uL (0-450); Eosinophils Percent Auto 3.3 % (2-4); Hematocrit 39.9 % (36-46); Hemoglobin 13.4 g/dL (12.0-16.0); Lymphocytes Absolute Auto 1200 /uL (1100-4500); Lymphocytes Percent Auto 31.2 % (25-40); Mean Corpuscular HGB Conc 33.6 % (30-36); Mean Corpuscular Hemoglobin 32.7 PG (26-34); Mean Corpuscular Volume 97.4 fL (80-100); Monocytes Absolute Auto 400 /uL (0-900); Monocytes Percent Auto 9.6 % (3-14); Neutrophils Absolute Auto 2100 /uL (1500-7000); Neutrophils Percent Auto 54.2 % (50-75); Platelet Count 192 X10^3/uL (150-400); Red Cell Distribution Width 14.5 % (11.6-14.8); White Blood Cell Count 3.8 X10^3/uL (4.5-11.0)
[2022-10-29 10:32] LABS: Alanine Aminotransferase 30 IU/L (<35); Albumin 3.7 g/dL (3.5-5.0); Albumin Globulin Ratio 1.4 (1.0-2.8); Alkaline Phosphatase 97 U/L (38-126); Aspartate Aminotransferase 40 IU/L (14-36); BUN Creatinine Ratio 15.7 (6-22); Bilirubin Total 0.8 mg/dL (0.2-1.3); Blood Urea Nitrogen 13 mg/dL (7-17); Calcium 8.9 mg/dL (8.4-10.2); Carbon Dioxide 32 mmol/L (22-32); Chloride 102 mmol/L (98-107); Cholesterol 127 mg/dL (140-199); Estimated Glomerular Filt Rate > 60 mL/min (>60); Globulin 2.7 g/dL (1.7-4.1); Glucose 83 mg/dL (80-110); HDL Cholesterol 74 mg/dL (40-60); HEMOLYSIS < 15 (0-50); LDL Cholesterol Calculated 43 mg/dL (<100); Potassium 4.1 mmol/L (3.4-5.1); Sodium 137 mmol/L (137-145); Total Protein 6.4 g/dL (6.3-8.2); Triglycerides 50 mg/dL (35-150)
[2022-10-29 10:47] LABS: Free T4, Direct Thyroxine 1.57 ng/dL (0.78-2.19)
[2022-10-29 11:01] LABS: TSH w/ Reflex to FT4 2.45 uIU/mL (0.47-4.68)
== END ==
PROVIDERS: PCP Family Medicine; Referring Provider Family Medicine; Visit Provider Family Medicine
DX: E03.9 Hypothyroidism, unspecified (principal); E78.2 Mixed hyperlipidemia; F41.9 Anxiety disorder, unspecified; I48.0 Paroxysmal atrial fibrillation
CPT/HCPCS: 36415; 80053; 80061; 84439; 84443; 85025

== ENCOUNTER 2022-12-28 20:39 | Emergency (ER) | payer OTHER, SELFPAY ==
--- NOTE | 2022-12-28 20:45 | ED.GENADULT ---
HPI - General Adult General Chief complaint: Eye Problems Stated complaint: Eye pain Time Seen by Provider: 12/28/22 20:40 History of Present Illness HPI narrative: 77F nonsmoker with history hyperlipidemia, hypothyroid, AFib on anticoagulation presents with her daughter and a chief complaint of irritation and redness of her right eye. She denies any traumatic injury but does state that she felt an irritation developed after working in the garden earlier in the day. It has minimal light sensitivity and some watering. She denies any notable blurred vision or eye pain. She states if anything she feels like there maybe a small foreign body underneath her eyelid. She denies any drainage. She is had no UV exposure and does not wear contacts Related Data Home Medications Medication Instructions Recorded Confirmed verapamil 120 mg tablet,extended 120 mg PO DAILY 02/12/21 11/19/22 release Previous Rx's Medication Instructions Recorded dabigatran etexilate 150 mg 150 mg PO BID #180 caps 11/19/22 capsule (Pradaxa) levothyroxine 75 mcg tablet 75 mcg PO ONCE #90 tabs 11/19/22 Allergies Allergy/AdvReac Type Severity Reaction Status Date / Time monosodium glutamate Allergy Severe Anaphylaxis Verified 11/19/22 10:36 sulfite Allergy Severe Redness Verified 11/19/22 10:36 and swelling Sulfa (Sulfonamide Allergy Mild Verified 11/19/22 10:36 Antibiotics) [SULFA (SULFONAMIDE ANTIBIOTICS)] bacitracin AdvReac Severe Swelling Verified 11/19/22 10:36 [From Neosporin ([id number])] neomycin AdvReac Severe Swelling Verified 11/19/22 10:36 [From Neosporin ([id number])] polymyxin B AdvReac Severe Swelling Verified 11/19/22 10:36 [From Neosporin ([id number])] Review of Systems Review of Systems Narrative: GENERAL: Denies chills, fatigue, malaise, fever, sweats. HEENT: See HPI RESPIRATORY: Denies dyspnea, cough, wheezing, hemoptysis, sputum. CARDIOVASCULAR: Denies chest pain, palpitations, orthopnea, edema, GASTROINTESTINAL: Denies nausea, vomiting, abdominal pain, diarrhea, constipation, melena. : Denies dysuria, frequency, incontinence, hematuria, urinary retention. MUSCULOSKELETAL: denies weakness, joint pain, or bony pain SKIN: Denies rash, skin lesions, or other NEUROLOGIC: Denies weakness, headache, numbness, change in speech, confusion, seizures, incoordination. PSYCHIATRIC: No concerning psychosocial issues. 12 point review of systems is negative except for those stated above Patient History Medical History Balance problem Cataract Chicken pox (~1949) Dyspnea on exertion Excessive cerumen in left ear canal Feeling grief Hayfever Hypothyroidism Lower leg edema Measles (1946) Osteoarthritis Osteopenia Paroxysmal atrial fibrillation Situational anxiety Tinnitus (2007) Surgical History History of dilation and curettage History of tonsillectomy Status post tubal ligation (03/19/71) Family History Father No problems noted. Mother COPD (chronic obstructive pulmonary disease) Sister No problems noted. Sister No problems noted. Social History household members: spouse Smoking Status: Never smoker Smoking Status: Never smoker Substance Use Type: does not use Exam Narrative Exam Narrative: GEN: AOx3 and in mild distress EYES: Pupils are equal, round, and reactive to light and accommodation. Extraoccular muscles are intact bilaterally. Right eye with moderate scleral injection and watering. No obvious foreign body under Wood's lamp, upper lid everted. Fluorescein application demonstrates no evidence of corneal abrasion, ulceration or dendritic lesion though there is a small area of dye uptake that is easily wiped away with a moistened Q-tip. Normal funduscopic exam. Intra-ocular pressure measured at 21 mm Hg. Application of proparacaine results in complete resolution of pain CHEST: Lungs are clear to auscultation bilaterally and free of wheezes, rales, or rhonchi. Heart rate is regular rhythm, there are no murmurs, clicks, rubs, or gallops. There is no chest wall tenderness. ABD: Abdomen is soft and nontender. There is no guarding or rebound. Bowel sounds are normal in all 4 quadrants. There is no mass or organomegaly. EXT: Full painless ROM of all extremities with no loss of sensation or strength. SKIN: Warm, pink, and dry. No erythema or rash Initial Vital Signs Initial Vital Signs: Vital Signs Temperature 97.8 F 12/28/22 20:47 Pulse Rate 76 12/28/22 20:47 Respiratory Rate 16 12/28/22 20:47 Blood Pressure 155/95 H 12/28/22 20:47 Pulse Oximetry 100 12/28/22 20:47 Oxygen Delivery Method Room Air 12/28/22 20:47 Course Orders Ordered: Discontinued Medications Fluorescein Sodium (Fluorescein 1 Mg Strip) 1 mg EYE-BOTH NOW ONE Stop: 12/28/22 20:41 Last Admin: 12/28/22 21:35 Dose: 1 mg Documented By: BS Ofloxacin (Ofloxacin 0.3% Ophth 5 Ml) 1 drops EYE-RIGHT NOW ONE Stop: 12/28/22 21:21 Last Admin: 12/28/22 21:35 Dose: 1 drops Documented By: BS Proparacaine HCl (Proparacaine 0.5% Ophth Sakina) 1 drops EYE-BOTH NOW ONE Stop: 12/28/22 20:41 Last Admin: 12/28/22 20:58 Dose: 1 drop Documented By: BS Vital Signs Vital signs: Vital Signs - 8 hr 12/28/22 20:47 12/28/22 21:42 Temperature 97.8 F Pulse Rate 76 75 Respiratory Rate 16 16 Blood Pressure 155/95 H 152/95 H Pulse Oximetry 100 100 Oxygen Delivery Method Room Air Room Air Medical Decision Making [facility] Narrative Medical decision making narrative: [77] year old patient presents with R eye pain, redness, watering Multiple etiologies for patient's symptoms considered including, but not limited to: [Conjunctivitis versus corneal abrasion versus foreign body versus uveitis versus acute angle closure glaucoma versus other] Prior Charts reviewed in our EMR Primary Historian: patient Patient's symptoms improved over duration of stay with above-stated therapies. Multiple diagnoses considered as noted above. No evidence of abrasion with fluorescein, no foreign body under Wood's lamp, however a small piece of particulate noted under fluorescein removed raising the question of a possible foreign body. No matting or exudate to suggest an infectious process. Intra-ocular pressure within normal. There is some concern about the possibility of a mild, early 1st presentation of anterior uveitis. Patient has a scheduled appointment with Dr. Galvan in 2 days as it is. This is appropriate, patient given ofloxacin and given return precautions Findings and discharge diagnosis discussed with patient/family followed by verbalization of understanding Return precautions discussed with patient/family whom verbalize understanding of diagnosis and plan Discharge Plan Departure Patient Disposition: Home Clinical Impression: Corneal irritation of right eye Activity Restrictions/Additional Instructions: *You have been diagnosed with [irritation of right cornea. As we discussed there may have been a small foreign body during our exam but no evidence of corneal abrasion or obvious infectious process.] *What to do: *Please continue to take your regular medications as directed. [x] Ofloxacin: 1-2 drops in your right eye every 4 hourP [x] Proparacaine has been diluted to 0.05% and you may use 1 drop for pain every 45-60 minutes for pain for up to 48 hours [ ] No new medications given *Please follow up with your eye doctor on Thursday as planned. Let them know you were seen in the Emergency Department and that we ask that you be seen in follow up. We will electronically transmit a record of today's note *Return to Emergency Department if you should have any new, worsening or concerning symptoms, such as [fever greater than 101 F, shaking chills, worsening pain, persistent vomiting or other bothersome symptoms] Prescriptions: No Action verapamil 120 mg tablet extended release 120 mg PO DAILY levothyroxine 75 mcg tablet 75 mcg PO ONCE Qty: 90 3RF dabigatran etexilate [Pradaxa] 150 mg capsule 150 mg PO BID Qty: 180 3RF Referrals: Austin Galvan MD [Physician] - Jamaal Olmedo DO [Primary Care Provider] - Stand Alone Forms: Patient Portal/API
[2022-12-28 20:47] VITALS: BP 155/95; PULSE 76; RESP 16; TEMP 36.6; O2SAT 100; BMI 25.0
[2022-12-28] MEDS: PROPARACAINE 0.5% OPHTH SOL 1 DROPS EYE-BOTH (20:58)
[2022-12-28] MEDS: FLUORESCEIN 1 MG STRIP EYE-BOTH (21:35)
[2022-12-28] MEDS: OFLOXACIN 0.3% OPHTH 5 ML 1 DROPS EYE-RIGHT (21:35)
[2022-12-28 21:42] VITALS: BP 152/95; PULSE 75; RESP 16; O2SAT 100
== END 2022-12-28 21:42 | disposition home or self-care (01) ==
PROVIDERS: Emergency Provider Emergency Medicine; PCP Family Medicine
DX: H57.11 Ocular pain, right eye (principal)
CPT/HCPCS: 99282

== ENCOUNTER → 2023-09-25 | Outpatient (CLI) | payer OTHER, SELFPAY ==
--- NOTE | 2023-09-25 08:25 | DI.ECHO.S_ITS ---
[facility] +---------+ : : [address] : [place] : : : : [id number] : : : : Phone: [phone] Echocardiogram Report + + :Name: WENCESLAO MENODZA Study Date: 09/25/2023 Height: 67 in : :[facility] ReadingLocation: Weight: 142 lb : : Gender: Female BSA: 1.7 m2 : :: 1945 Age: 78 yrs BP: 112/85 mmHg: :Reason For Study: ATRIAL FIBRILLATINO : :Ordering Physician: : :UNSPECIFIED Performed By: Lj Blanca : :Referring: UNSPECIFIED : + + Interpretation Summary TDS - ATRIAL FIBRILLATION The left ventricle is normal in size and wall thickness. Left ventricular systolic function is mildly reduced. Left ventricular ejection fraction is estimated to be 45%. There is mild global hypokinesis of the left ventricle. The right ventricle is severely dilated. Right ventricular systolic function is mildly reduced. The right ventricular systolic pressure is estimated to be at least 32 mmHg based on an estimated right atrial pressure of 15 mm Hg. The left atrium is borderline dilated. The right atrium is severely dilated. There is mild mitral regurgitation. There is severe tricuspid regurgitation. Procedure: A two-dimensional transthoracic echocardiogram with color flow and Doppler was performed. The study quality was technically adequate. Comparison is made with the echocardiogram of 04/24/2020. The patient was in atrial fibrillation with heart rates between 63-153 bpm during the exam. Left Ventricle: The left ventricle is normal in size and wall thickness. Left ventricular systolic function is mildly reduced. Left ventricular ejection fraction is estimated to be 45%. There is mild global hypokinesis of the left ventricle. Diastolic function could not be accurately assessed due to atrial fibrillation. Right Ventricle: The right ventricle is severely dilated. Right ventricular systolic function is mildly reduced. Atria: The left atrium is borderline dilated. The right atrium is severely dilated. The interatrial septum grossly appears intact with no obvious evidence for an atrial septal defect. Mitral Valve: The mitral valve is normal in structure and function. There is no mitral valve stenosis. There is mild mitral regurgitation. Aortic Valve: The aortic valve is trileaflet. There is no aortic valve stenosis. No aortic regurgitation is present. Tricuspid Valve: The tricuspid valve is not well visualized, but is grossly normal. There is no tricuspid stenosis. There is severe tricuspid regurgitation. The right ventricular systolic pressure is estimated to be at least 32 mmHg based on an estimated right atrial pressure of 15 mm Hg. Pulmonic Valve: The pulmonic valve is not well visualized. There is no pulmonic valvular stenosis. There is a trace or physiologic amount of pulmonic regurgitation. Great Vessels: The aortic root is normal size. The dimensions of the ascending aorta are normal. The IVC is dilated (diameter is greater than 2.1 cm) and it collapses less than 50% with a sniff. This suggests a high right atrial pressure of 15 mm Hg. Pericardium/ Pleura There is no pericardial effusion. There is no pleural effusion. MMode/2D Measurements & Calculations LVIDd: 3.4 cm LVOT diam: 2.0 cm LVIDs: 2.5 cm Ao root diam: 2.9 cm FS: 25.2 % asc Aorta Diam: 2.8 cm IVSd: 0.92 cm Ao Arch Diam (Prox Trans): 2.7 cm LVPWd: 1.1 cm LV wilkinson. diameter/BSA (cm/m^2): 2.0 LV sys. diameter/BSA (cm/m^2): 1.5 LA A2 area: 18.5 cm2 RA long axis: 6.9 cm LA A4 area: 18.2 cm2 RA area: 29.3 cm2 LA length (vol): 5.6 cm RA vol: 105.5 ml LA vol: 50.6 ml RA : 60.4 ml/m2 LA vol index: 28.9 ml/m2 IVC diam: 2.8 cm TAPSE: 2.0 cm Doppler Measurements & Calculations Ao V2 max: 75.4 cm/sec LVOT Max Antolin: 60.3 cm/sec Ao V2 mean: 54.2 cm/sec LV V1 max P.5 mmHg Ao max P.3 mmHg LV V1 VTI: 12.0 cm Ao mean P.3 mmHg JONAS(I,D): 2.7 cm2 Ao V2 VTI: 13.3 cm JONAS(V,D): 2.4 cm2 sev ratio: 0.90 JONAS indexed to BSA (cm^2/m^2): 1.6 MV E max antolin: 66.6 cm/sec TR max antolin: 206.1 cm/sec MV A max antolin: 18.7 cm/sec TR max P.0 mmHg MV E/A: 3.6 PA V2 max: 68.3 cm/sec MV dec time: 0.17 sec PA V2 mean: 49.6 cm/sec PA mean P.1 mmHg PA pr(Accel): 46.5 mmHg SV(LVOT): 36.4 ml Reading Physician:10:51 AM
== END ==
LOC: ECHO 07:50
PROVIDERS: PCP Family Medicine; Referring Provider Nurse Practitioner Family; Visit Provider Nurse Practitioner Family
DX: I08.1 Rheumatic disorders of both mitral and tricuspid valves (principal); I48.19 Other persistent atrial fibrillation
CPT/HCPCS: 93306

== ENCOUNTER → 2023-09-29 08:42 | Outpatient (CLI) | payer OTHER, SELFPAY ==
[2023-09-29 09:47] LABS: Add Manual Diff / Slide Review NO; Basophils Absolute Auto 0 /uL (0-100); Basophils Percent Auto 1.3 % (0-2); Eosinophils Absolute Auto 100 /uL (0-450); Eosinophils Percent Auto 2.5 % (2-4); Hematocrit 40.8 % (36-46); Lymphocytes Absolute Auto 1500 /uL (1100-4500); Lymphocytes Percent Auto 45.7 % (25-40); Mean Corpuscular HGB Conc 34.3 % (30-36); Mean Corpuscular Hemoglobin 33.5 PG (26-34); Mean Corpuscular Volume 97.7 fL (80-100); Monocytes Absolute Auto 300 /uL (0-900); Monocytes Percent Auto 9.9 % (3-14); Neutrophils Absolute Auto 1400 /uL (1500-7000); Neutrophils Percent Auto 40.6 % (50-75); Platelet Count 163 X10^3/uL (150-400); Red Blood Cell Count 4.18 X10^6/uL (4.0-5.2); Red Cell Distribution Width 13.8 % (11.6-14.8); White Blood Cell Count 3.3 X10^3/uL (4.5-11.0)
[2023-09-29 10:06] LABS: Alanine Aminotransferase 37 IU/L (<35); Albumin Globulin Ratio 1.3 (1.0-2.8); Alkaline Phosphatase 106 U/L (38-126); Aspartate Aminotransferase 49 IU/L (14-36); BUN Creatinine Ratio 18.4 (6-22); Blood Urea Nitrogen 14 mg/dL (7-17); Calcium 9.4 mg/dL (8.4-10.2); Carbon Dioxide 31 mmol/L (22-32); Chloride 107 mmol/L (98-107); Cholesterol 163 mg/dL (140-199); Estimated Glomerular Filt Rate > 60 mL/min (>60); Globulin 3.1 g/dL (1.7-4.1); Glucose 88 mg/dL (80-110); HDL Cholesterol 67 mg/dL (40-60); HEMOLYSIS < 15 (0-50); LDL Cholesterol Calculated 83 mg/dL (<100); Potassium 4.7 mmol/L (3.4-5.1); Sodium 141 mmol/L (137-145); Total Protein 7.1 g/dL (6.3-8.2); Triglycerides 66 mg/dL (35-150)
== END ==
PROVIDERS: PCP Family Medicine; Referring Provider Family Medicine; Visit Provider Family Medicine
DX: E78.2 Mixed hyperlipidemia (principal); E03.9 Hypothyroidism, unspecified; I48.91 Unspecified atrial fibrillation
CPT/HCPCS: 36415; 80053; 80061; 84443; 85025

== ENCOUNTER → 2024-03-30 15:08 | Outpatient (CLI) | payer OTHER, SELFPAY ==
[2024-03-30 16:40] LABS: Estimated Glomerular Filt Rate > 60 mL/min (>60)
== END ==
PROVIDERS: PCP Family Medicine
DX: Z01.812 Encounter for preprocedural laboratory examination (principal)
CPT/HCPCS: 36415; 82565

== ENCOUNTER → 2024-06-15 12:26 | Outpatient (CLI) | payer OTHER, SELFPAY ==
--- NOTE | 2024-06-15 12:29 | DI.ECHO.S_ITS ---
[facility] : : [address] : : [place] : : [id number] : : Phone: [phone] Echocardiogram Report + + :Name: WENCESLAO MENDOZA Study Date: 06/15/2024 Height: 67 in : :[facility] ReadingLocation: Weight: 142 lb : : Gender: Female BSA: 1.7 m2 : :: 1945 Age: 79 yrs BP: 118/73 mmHg: :Reason For Study: PERSISTENT ATRIAL FIBRILLATION : :Ordering Physician: ROBIN, : :KEELY Carey Performed By: Kristy Adkins : :Referring: KEELY KELLY : + + Interpretation Summary Normal sinus rhythm. Normal LV size and wall thickness. Global hypokinesis with ejection fraction of 45-50%. Stage II diastolic dysfunction. Mildly dilated right ventricle with normal RV systolic function. Mildly dilated left atrium and severely dilated right atrium. Moderate central tricuspid regurgitation. Estimated PA systolic pressure is 51 mmHg assuming right atrial pressure 15 mmHg. There is incidentally noted heavy atherosclerotic plaque involving transverse aorta. Compared to prior echocardiogram obtained September 25, 2023, A-fib is no longer present. RV dilation is less pronounced. Tricuspid regurgitation is better. Procedure: A two-dimensional transthoracic echocardiogram with color flow and Doppler was performed. The study quality was technically adequate. Comparison is made with the echocardiogram of 09/25/2023. The patient was in sinus rhythm with heart rates between 62-72 bpm during the exam. Left Ventricle: The left ventricle is normal in size and wall thickness. The ejection fraction is estimated to be 45-50%. Right Ventricle: The right ventricle is mild to moderately dilated. The right ventricular systolic function is normal. Atria: The left atrium is mildly dilated. The right atrium is severely dilated. There is no Doppler evidence for an interatrial shunt. Mitral Valve: The mitral valve is normal in structure and function. There is no mitral valve stenosis. There is mild mitral regurgitation. Aortic Valve: The aortic valve is trileaflet. The aortic valve opens well. There is no aortic valve stenosis. No aortic regurgitation is present. Tricuspid Valve: The tricuspid annulus is dilated. There is moderate tricuspid regurgitation. The right ventricular systolic pressure is estimated to be at least 51 mmHg based on an estimated right atrial pressure of 15 mm Hg. Pulmonic Valve: The pulmonic valve leaflets are thin and pliable; valve motion is normal. There is no pulmonic valvular regurgitation. Great Vessels: The aortic root is normal size. The dimensions of the ascending aorta are normal. The IVC is dilated (diameter is greater than 2.1 cm) and it collapses less than 50% with a sniff. This suggests a high right atrial pressure of 15 mm Hg. Pericardium/ Pleura There is no pericardial effusion. There is no pleural effusion. MMode/2D Measurements & Calculations LVIDd: 4.4 cm LVOT diam: 2.0 cm LVIDs: 3.0 cm Ao root diam: 2.8 cm FS: 31.4 % asc Aorta Diam: 3.1 cm EPSS: 0.46 cm Ao Arch Diam (Prox Trans): 2.6 cm IVSd: 0.62 cm LVPWd: 0.55 cm LV wilkinson. diameter/BSA (cm/m^2): 2.5 LV sys. diameter/BSA (cm/m^2): 1.7 LA A2 area: 21.3 cm2 RA long axis: 5.9 cm LA A4 area: 21.3 cm2 RA area: 24.9 cm2 LA length (vol): 5.8 cm RA vol: 89.1 ml LA vol: 66.7 ml RA : 51.0 ml/m2 LA vol index: 38.1 ml/m2 IVC diam: 2.8 cm RVD1 (basal): 4.6 cm RVD2 (mid): 3.0 cm TAPSE: 2.4 cm Doppler Measurements & Calculations Ao V2 max: 100.2 cm/sec LVOT Max Antolin: 76.1 cm/sec Ao V2 mean: 78.4 cm/sec LV V1 max P.3 mmHg Ao max P.0 mmHg LV V1 VTI: 17.4 cm Ao mean P.6 mmHg JONAS(I,D): 2.1 cm2 Ao V2 VTI: 24.5 cm JONAS(V,D): 2.3 cm2 sev ratio: 0.71 JONAS indexed to BSA (cm^2/m^2): 1.2 MV E max antolin: 75.3 cm/sec TR max antolin: 301.1 cm/sec MV A max antolin: 53.5 cm/sec TR max P.3 mmHg MV E/A: 1.4 PA V2 max: 83.2 cm/sec Med Peak E' Antolin: 9.4 cm/sec PA V2 mean: 60.7 cm/sec E/E' med: 8.0 PA mean P.6 mmHg Lat Peak E' Antolin: 9.9 cm/sec PA pr(Accel): 31.0 mmHg E/E' lat: 7.6 E/e' average: 7.8 MV dec time: 0.23 sec SV(OT): 52.3 ml Electronically signed by: Jenn Queen M.D. on [place] Physician:06/15/2024 05:20 PM
== END ==
PROVIDERS: PCP Family Medicine; Referring Provider Physician Assistant; Visit Provider Physician Assistant
DX: I08.1 Rheumatic disorders of both mitral and tricuspid valves (principal); I48.19 Other persistent atrial fibrillation; I42.8 Other cardiomyopathies
CPT/HCPCS: 93306

== ENCOUNTER → 2024-08-09 12:37 | Outpatient (CLI) | payer OTHER, SELFPAY ==
[2024-08-09 13:47] LABS: Alanine Aminotransferase 34 IU/L (<35); Albumin 4.3 g/dL (3.5-5.0); Albumin Globulin Ratio 1.6 (1.0-2.8); Alkaline Phosphatase 76 U/L (38-126); Aspartate Aminotransferase 49 IU/L (14-36); BUN Creatinine Ratio 19.8 (6-22); Bilirubin Total 0.7 mg/dL (0.2-1.3); Blood Urea Nitrogen 16 mg/dL (7-17); Calcium 9.2 mg/dL (8.4-10.2); Carbon Dioxide 30 mmol/L (22-32); Chloride 104 mmol/L (98-107); Estimated Glomerular Filt Rate > 60 mL/min (>60); Globulin 2.7 g/dL (1.7-4.1); Glucose 89 mg/dL (80-110); HEMOLYSIS < 15 (0-50); Potassium 4.1 mmol/L (3.4-5.1); Sodium 138 mmol/L (137-145)
[2024-08-09 14:05] LABS: Free T4, Direct Thyroxine 1.48 ng/dL (0.78-2.19)
[2024-08-09 14:19] LABS: Thyroid Stimulating Hormone 1.52 uIU/mL (0.47-4.68)
== END ==
PROVIDERS: PCP Family Medicine; Referring Provider Internal Medicine Cardiovascular Disease; Visit Provider Internal Medicine Cardiovascular Disease
DX: I48.0 Paroxysmal atrial fibrillation (principal)
CPT/HCPCS: 36415; 80053; 84439; 84443

== ENCOUNTER → 2024-09-27 11:37 | Outpatient (CLI) | payer OTHER, SELFPAY ==
[2024-09-27 13:10] LABS: Add Manual Diff / Slide Review NO; Basophils Absolute Auto 0 /uL (0-100); Basophils Percent Auto 0.9 % (0-2); Eosinophils Absolute Auto 100 /uL (0-450); Eosinophils Percent Auto 2.6 % (2-4); Hematocrit 39.4 % (36-46); Hemoglobin 13.2 g/dL (12.0-16.0); Lymphocytes Absolute Auto 1500 /uL (1100-4500); Lymphocytes Percent Auto 32.4 % (25-40); Mean Corpuscular HGB Conc 33.6 % (30-36); Mean Corpuscular Volume 98.3 fL (80-100); Monocytes Absolute Auto 500 /uL (0-900); Monocytes Percent Auto 10.2 % (3-14); Neutrophils Absolute Auto 2400 /uL (1500-7000); Neutrophils Percent Auto 53.9 % (50-75); Platelet Count 183 X10^3/uL (150-400); Red Blood Cell Count 4.01 X10^6/uL (4.0-5.2); Red Cell Distribution Width 13.9 % (11.6-14.8); White Blood Cell Count 4.5 X10^3/uL (4.5-11.0)
== END ==
PROVIDERS: PCP Family Medicine; Referring Provider Internal Medicine Cardiovascular Disease; Visit Provider Internal Medicine Cardiovascular Disease
DX: I48.0 Paroxysmal atrial fibrillation (principal)
CPT/HCPCS: 36415; 85025